=== PATIENT | female | born 1970 | race Caucasian/White ===

== ENCOUNTER 2020-03-22 10:41 | Emergency (ER) | payer BC, MEDICAID ==
[~2020-03-22] VITALS: Ht 157.5 cm; Wt 49.9 kg
[2020-03-22] MEDS: IV NORMAL SALINE 1000 ML BAG IV ONE (11:00)
[2020-03-22] MEDS: FAMOTIDINE. 20 MG/2 ML VIAL IV ONE (11:00)
[2020-03-22] MEDS: MAG HYDROX/AL HYDROX/SIMETH 30 ML LIQUID UDC PO ONE (11:00)
[2020-03-22] MEDS: LIDOCAINE VISCUS 2% 15 ML UDC MM ONE (11:00)
--- NOTE | 2020-03-22 11:00 | NUR ---
recieved pt walking in er c/o nusea for 2 days no vomition pt fully awake and alert resp spont and easy skin warm and day to touch examin by DR. Brown INSERTED ANGO CATH # [id number] ON LT AC BLOOD DROW AND sent to lab ua sent to lab vs stable wnl mediction was given as order
[2020-03-22] MEDS: ONDANSETRON 4 MG/2 ML VIAL IV ONE (11:05)
[2020-03-22] MEDS ORDERED: ONDANSETRON 4 MG/2 ML VIAL ONE (11:27)
[2020-03-22] MEDS ORDERED: FAMOTIDINE. 20 MG/2 ML VIAL IV ONE (11:28)
[2020-03-22] MEDS ORDERED: LIDOCAINE VISCUS 2% 15 ML UDC ONE (11:32)
[2020-03-22] MEDS ORDERED: MAG HYDROX/AL HYDROX/SIMETH 30 ML LIQUID UDC ONE (11:32)
[2020-03-22 12:14] LABS: *BILIRUBIN,URIN 1+ (NEGATIVE); *BLOOD, URINE TRACE LYSED (NEGATIVE); *CLARITY,URINE CLEAR (CLEAR); *COLOR,URINE YELLOW (YELLOW); *KETONES,URINE 1+ (NEGATIVE); *URINE HCG, QUAL NEGATIVE (NEGATIVE); LEUKOCYTE ESTERASE ,URINE TRACE (NEGATIVE); NITRITE, URINE NEGATIVE (NEGATIVE); PH,URINE 6.5 (5.0-8.0); UGLUCOSE NEGATIVE (NEGATIVE)
[2020-03-22 12:20] LABS: BASOPHILS % (AUTO) 0.3 % (0.0-2.0); EOSINOPHILS # (AUTO) 0.1 K/uL (0.0-0.7); EOSINOPHILS % (AUTO) 1.1 % (0.0-7.0); HEMATOCRIT 30.2 % (31.2-41.9); HEMOGLOBIN 9.8 g/dL (10.9-14.3); LYMPHOCYTES # (AUTO) 1.4 K/uL (20.0-40.0); LYMPHOCYTES % (AUTO) 24.6 % (20.5-51.5); MEAN CORPUSCULAR HEMOGLOBIN 26.6 uug (24.7-32.8); MEAN CORPUSCULAR HGB CONC 32 g/dL (32.3-35.6); MEAN CORPUSCULAR VOLUME 82.1 fL (75.5-95.3); MONOCYTES # (AUTO) 0.4 K/uL (2.0-10.0); MONOCYTES % (AUTO) 6.2 % (0.0-11.0); NEUTROPHILS # (AUTO) 3.9 K/uL (1.8-8.9); NEUTROPHILS % (AUTO) 67.8 % (38.5-71.5); PLATELET COUNT (AUTO) 384 K/uL (179-408); RED BLOOD CELL COUNT(AUTO) 3.68 MIL/uL (3.63-4.92); WHITE BLOOD COUNT (AUTO) 5.7 K/uL (3.8-11.8)
[2020-03-22 12:23] LABS: CREATININE 0.6 mg/dL (0.6-1.3); POTASSIUM 3.4 mmol/L (3.5-5.1)
[2020-03-22 12:28] LABS: BILIRUBIN,DIRECT 0.1 mg/dL (0.0-0.2); BILIRUBIN,TOTAL 0.2 mg/dL (0.2-1.0); TOTAL PROTEIN, SERUM 7.4 g/dL (6.4-8.2)
--- NOTE | 2020-03-22 12:30 | NUR ---
wating for lab result pt condition improved abdomin soft none tender to tuch
--- NOTE | 2020-03-22 13:20 | NUR ---
dineses any n/v d/c instraction and rx and fallow up care given to pt fully and verblized understood d/c home with RX VS wnl
[2020-03-22 13:41] VITALS: BP 124/74
[2020-03-22 18:12] LABS: SQUAMOUS EPITHELIAL CELL,UR NONE SEEN /HPF (NONE SEEN); WBC,URINE 0-3 /HPF (0-3)
[2020-03-22 18:13] LABS: BACTERIA,URINE FEW /HPF (NONE SEEN); URINE AMORPHOUS URATE MANY /HPF
== END 2020-03-22 13:25 | disposition home or self-care (01) ==
LOC: ER 10:41
DX: R11.2 Nausea with vomiting, unspecified (principal); E86.0 Dehydration; E87.6 Hypokalemia; Z87.11 Personal history of peptic ulcer disease; Z87.19 Personal history of other diseases of the digestive system; D64.9 Anemia, unspecified
CPT/HCPCS: 36415; 80048; 80076; 81001; 83690; 84703; 85025; 96361; 96374; 96375; 99285; J2405; J3490; A4663; J7030